=== PATIENT | female | born 1995 | race Caucasian/White ===

== ENCOUNTER 2017-03-21 16:29 | Emergency (ER) | payer SELFPAY ==
[2017-03-21] MEDS ORDERED: AZITHROMYCIN 250 MG TABLET PO STA (16:41)
[2017-03-21] MEDS ORDERED: cefTRIAXone 250 MG VIAL IM STA (16:41)
[2017-03-21] MEDS ORDERED: LIDOCAINE 1% 2 ML VIAL SUBQ ONE (16:41)
--- NOTE | 2017-03-21 16:42 | ED Physician Documentation ---
History of Present Illness - Stated complaint Stated Complaint: FEMALE - Chief complaint Chief Complaint: General - History obtained from History obtained from: Patient - History of Present Illness Timing: Other (Her boyfriend has genital itching and burning and was diagnosed with potential STD. She has no symptoms but would like to be tested and treated.) Review of Systems Constitutional: denies: Fever, Chills : denies: Dysuria, Frequency, Hesitancy, Incontinent PD PAST MEDICAL HISTORY - Past Medical History Past Medical History: No - Past Surgical History Past Surgical History: Yes General: Appendectomy - Present Medications Home Medications: Ambulatory Orders Medication Instructions Recorded Confirmed No Known Home Medications [No 03/21/17 03/21/17 Known Home Medications] - Allergies Allergies/Adverse Reactions: Allergies Allergy/AdvReac Type Severity Reaction Status Date / Time amoxicillin Allergy Hives Verified 03/21/17 16:34 Penicillins Allergy Hives Verified 03/21/17 16:34 - Social History Does the pt smoke?: No Smoking Status: Never smoker Does the pt drink ETOH?: No Does the pt have substance abuse?: No - Immunizations Immunizations are current?: Yes PD ED PE NORMAL - Vitals Vital signs reviewed: Yes - General General: Alert and oriented X 3, No acute distress - Abdomen Abdomen: Soft, Non tender - Neuro Neuro: Alert and oriented X 3, Normal speech - Psych Psych: Normal mood, Normal affect Results - Vitals Vitals: Vital Signs - 24 hr 03/21/17 16:31 Temperature 36.4 C L Heart Rate 79 Respiratory 18 Rate Blood Pressure 141/92 H O2 Saturation 100 Oxygen O2 Source Room air Departure - Departure Disposition: Home, Self Care Clinical Impression: STD exposure Condition: Good Record reviewed to determine appropriate education?: Yes Instructions: ED Chlamydia GC Poss Culture Pend Comments: Your blood pressure was elevated today on check into the emergency department. This does not mean that you have hypertension, it is a common phenomenon to come to the emergency department and have elevated blood pressure. I recommend that you see your primary care physician within the week to have it rechecked when you are feeling better. If your STD tests are positive we will call you, but you have been treated for both gonorrhea and chlamydia.
[2017-03-21 17:12] VITALS: BP 126/64
== END 2017-03-21 17:11 | disposition home or self-care (01) ==
LOC: ED 16:29
DX: Z20.2 Contact with and (suspected) exposure to infections with a predominantly sexual mode of transmission (principal); R03.0 Elevated blood-pressure reading, without diagnosis of hypertension
CPT/HCPCS: 87491; 87591; 96372; 99283; A9270

== ENCOUNTER 2018-07-07 09:09 | Emergency (ER) | payer SELFPAY ==
[2018-07-07] MEDS ORDERED: ONDANSETRON ODT 4 MG TABLET TL STA (09:31)
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
--- NOTE | 2018-07-07 10:13 | CT Report ---
Reason: concussion Procedure Date: 07/07/2018 Accession Number: [id number] / [id number] Procedure: CT - HEAD WO CPT Code: FULL RESULT: EXAM: CT HEAD EXAM DATE: 07/07/2018 10:03 AM. CLINICAL HISTORY: Concussion. COMPARISON: None. TECHNIQUE: Multiaxial CT images were obtained from the foramen magnum to the vertex. Reformats: Sagittal and coronal. IV contrast: None. In accordance with CT protocol optimization, one or more of the following dose reduction techniques were utilized for this exam: automated exposure control, adjustment of mA and/or KV based on patient size, or use of iterative reconstructive technique. FINDINGS: Parenchyma: No intraparenchymal hemorrhage. No evidence of mass, midline shift, or CT findings of infarction. Salcedo-white differentiation is distinct. Extraaxial Spaces: Normal for age. No subdural or epidural collections identified. Ventricles: Normal in size and position. Sinuses and Orbits: Imaged paranasal sinuses, orbits, and mastoids show no significant abnormality. Bones: No evidence of fracture or calvarial defect. Other: None. IMPRESSION: Normal head CT. [facility]
[2018-07-07 10:30] VITALS: BP 135/86
== END 2018-07-07 10:30 | disposition home or self-care (01) ==
LOC: ED 09:09
DX: S06.0X0A Concussion without loss of consciousness, initial encounter (principal); S00.83XA Contusion of other part of head, initial encounter; Y04.0XXA Assault by unarmed brawl or fight, initial encounter; Y92.511 Restaurant or cafe as the place of occurrence of the external cause; R03.0 Elevated blood-pressure reading, without diagnosis of hypertension
CPT/HCPCS: 70450; 99283; Q0162